=== PATIENT | male | born 1945 | race Caucasian/White ===

== ENCOUNTER 2017-11-04 07:09 | Emergency (ER) | payer MEDICAID ==
[~2017-11-04] VITALS: Ht 162.6 cm; Wt 170.0 kg
[2017-11-04] MEDS ORDERED: BPH PO (07:22)
[2017-11-04] MEDS ORDERED: BP PO (07:22)
[2017-11-04] MEDS ORDERED: CHOLESTEROL PO (07:22)
[2017-11-04] MEDS ORDERED: PROPARACAINE/FLUORESCEIN SOD 0.5-0.25% 0.5 ML OPHTHALMIC SOLUTION OU ONE (08:00)
[2017-11-04 09:44] VITALS: BP 111/68
== END 2017-11-04 09:46 | disposition home or self-care (01) ==
LOC: EMS 07:10
DX: H53.8 Other visual disturbances (principal); E78.00 Pure hypercholesterolemia, unspecified; I10 Essential (primary) hypertension; H40.9 Unspecified glaucoma
CPT/HCPCS: 99283; Z7610

== ENCOUNTER 2018-05-30 12:51 | Emergency (ER) | payer MEDICAID ==
[~2018-05-30] VITALS: Ht 162.6 cm; Wt 77.3 kg
[~2018-05-30 12:51] MED LIST: BP PO; BPH PO; CHOLESTEROL PO
[2018-05-30 15:55] VITALS: BP 126/62
== END 2018-05-30 16:10 | disposition home or self-care (01) ==
LOC: EMS 12:54
DX: J40 Bronchitis, not specified as acute or chronic (principal); B34.9 Viral infection, unspecified; J32.9 Chronic sinusitis, unspecified; B30.9 Viral conjunctivitis, unspecified; M79.10 Myalgia, unspecified site; E78.00 Pure hypercholesterolemia, unspecified; I10 Essential (primary) hypertension